=== PATIENT | female | born 1985 | race Caucasian/White ===

== ENCOUNTER 2017-11-12 19:52 | Emergency (ER) | payer SELFPAY | END 2017-11-12 20:59 | disposition home or self-care (01) | LOC: ERS 19:52 | DX: B34.9 Viral infection, unspecified (principal); G40.909 Epilepsy, unspecified, not intractable, without status epilepticus; F31.9 Bipolar disorder, unspecified; F41.9 Anxiety disorder, unspecified; F20.9 Schizophrenia, unspecified; F17.210 Nicotine dependence, cigarettes, uncomplicated; Z79.899 Other long term (current) drug therapy | CPT/HCPCS: 87081; 87430; 99283 ==

== ENCOUNTER 2019-06-01 22:14 | Emergency (ER) | payer SELFPAY ==
[2019-06-01] MEDS ORDERED: HYDROcodone/Acetaminophen 10/325 mg Tablet ONE (22:36)
[2019-06-01] MEDS ORDERED: Acetaminophen 500 MG TAB ONE (22:37)
--- NOTE | 2019-06-01 23:05 | RAD ---
Radiograph right ankle 3 views: HISTORY: 33-year-old female status post traumatic injury to right ankle FINDINGS: Ankle mortise is congruent. No fracture or subluxation. IMPRESSION: Negative
--- NOTE | 2019-06-01 23:06 | RAD ---
Radiograph right foot 3 views: HISTORY: 33 year old female status post acute traumatic injury to the right foot. FINDINGS: No evidence of fracture or dislocation. IMPRESSION: Negative
== END 2019-06-01 23:22 | disposition home or self-care (01) ==
LOC: ERS 22:14
DX: S93.601A Unspecified sprain of right foot, initial encounter (principal); G40.909 Epilepsy, unspecified, not intractable, without status epilepticus; F31.9 Bipolar disorder, unspecified; F41.9 Anxiety disorder, unspecified; F20.9 Schizophrenia, unspecified; F17.210 Nicotine dependence, cigarettes, uncomplicated; X50.1XXA Overexertion from prolonged static or awkward postures, initial encounter
CPT/HCPCS: 29515

== ENCOUNTER 2020-09-21 22:18 | Emergency (ER) | payer SELFPAY ==
[2020-09-21] MEDS ORDERED: Lidocaine 2% PF 5 ML VIAL ONE (23:32)
[2020-09-21] MEDS ORDERED: Bupivacaine 0.5% 10 ML VIAL ONE (23:32)
[2020-09-22] MEDS ORDERED: Triple Antibiotic Oint 1 GM Packet ONE (00:05)
== END 2020-09-22 00:13 | disposition home or self-care (01) ==
LOC: ERS 22:18
DX: S61.213A Laceration without foreign body of left middle finger without damage to nail, initial encounter (principal); G40.909 Epilepsy, unspecified, not intractable, without status epilepticus; F17.210 Nicotine dependence, cigarettes, uncomplicated; W26.0XXA Contact with knife, initial encounter
CPT/HCPCS: 12001; J2001; J3490

== ENCOUNTER 2021-06-06 10:17 | Emergency (ER) | payer SELFPAY | END 2021-06-06 13:07 | disposition left against medical advice (07) | LOC: ERS 10:17 | DX: Z53.21 Procedure and treatment not carried out due to patient leaving prior to being seen by health care provider (principal) ==